=== PATIENT | male | born 1960 | race Two or more races ===

== ENCOUNTER 2017-09-09 12:07 | Outpatient (CLI) | payer OTHER ==
[~2017-09-09 12:07] MED LIST: ALLOPURINOL300 MG; OXYC1TAB9 PO
== END 2017-09-09 14:28 | disposition home or self-care (01) ==
LOC: RAD 12:07
DX: R07.89 Other chest pain (principal); J90 Pleural effusion, not elsewhere classified; J18.0 Bronchopneumonia, unspecified organism; R07.1 Chest pain on breathing

== ENCOUNTER 2017-09-13 10:40 | Outpatient (CLI) | payer OTHER ==
[2017-09-13] MEDS ORDERED: FENTANYL1 EAC5 TOP (18:55)
== END 2017-09-13 10:47 | disposition home or self-care (01) ==
LOC: RAD 10:40
DX: J91.0 Malignant pleural effusion (principal)

== ENCOUNTER 2017-09-13 13:48 | Inpatient (IN) | payer OTHER ==
[~2017-09-13] VITALS: Ht 162.6 cm; Wt 77.1 kg
[2017-09-13] MEDS ORDERED: FENTANYL1 EAC5 TOP (18:55)
== END 2017-09-18 14:16 | disposition home or self-care (01) | DRG 193 ==
LOC: SEC-K 13:48 → SURH 09-15 20:27
PROC: 4A033R1 Measurement of Arterial Saturation, Peripheral, Percutaneous Approach (ICD-10-PCS; principal; 2017-09-13)
PROC: 3E0F7GC Introduction of Other Therapeutic Substance into Respiratory Tract, Via Natural or Artificial Opening (ICD-10-PCS; 2017-09-13)
PROC: 8E0ZXY6 Isolation (ICD-10-PCS; 2017-09-13)
PROC: BW24Y0Z Computerized Tomography (CT Scan) of Chest and Abdomen using Other Contrast, Unenhanced and Enhanced (ICD-10-PCS; 2017-09-13)
DX: J09.X1 Influenza due to identified novel influenza A virus with pneumonia (principal); D61.1 Drug-induced aplastic anemia; J90 Pleural effusion, not elsewhere classified; C17.1 Malignant neoplasm of jejunum; C78.7 Secondary malignant neoplasm of liver and intrahepatic bile duct; C77.2 Secondary and unspecified malignant neoplasm of intra-abdominal lymph nodes; C78.89 Secondary malignant neoplasm of other digestive organs; J18.8 Other pneumonia, unspecified organism; R09.02 Hypoxemia; I10 Essential (primary) hypertension; G89.3 Neoplasm related pain (acute) (chronic); D63.8 Anemia in other chronic diseases classified elsewhere; T45.1X5A Adverse effect of antineoplastic and immunosuppressive drugs, initial encounter

== ENCOUNTER 2017-09-26 08:47 | Outpatient (CLI) | payer OTHER ==
[~2017-09-26 08:47] MED LIST changes: +FENTANYL1 EAC5 TOP
== END 2017-09-26 13:42 | disposition home or self-care (01) ==
LOC: RAD 08:47
DX: R13.11 Dysphagia, oral phase (principal); K21.9 Gastro-esophageal reflux disease without esophagitis

== ENCOUNTER 2017-10-07 11:40 | Inpatient (IN) | payer OTHER ==
[~2017-10-07] VITALS: Ht 162.6 cm; Wt 72.6 kg
[2017-11-01] MEDS ORDERED: GABAPENTIN100 MG PO (09:15)
== END 2017-11-15 13:59 | disposition home or self-care (01) | DRG 336 ==
LOC: O/R 11-08 04:58 → SURG 11-08 04:58
PROVIDERS: Specialist
PROC: 0DN80ZZ Release Small Intestine, Open Approach (ICD-10-PCS; 2017-11-08)
PROC: 07TP0ZZ Resection of Spleen, Open Approach (ICD-10-PCS; principal; 2017-11-08 07:00)
DX: C7A.011 Malignant carcinoid tumor of the jejunum (principal); C7B.01 Secondary carcinoid tumors of distant lymph nodes; D62 Acute posthemorrhagic anemia; C7B.09 Secondary carcinoid tumors of other sites; C7B.02 Secondary carcinoid tumors of liver; D63.0 Anemia in neoplastic disease; K66.0 Peritoneal adhesions (postprocedural) (postinfection); G89.18 Other acute postprocedural pain; R50.82 Postprocedural fever

== ENCOUNTER 2017-10-13 09:24 | Outpatient (CLI) | payer OTHER | END 2017-10-13 16:51 | disposition home or self-care (01) | LOC: RAD 09:24 | DX: J11.1 Influenza due to unidentified influenza virus with other respiratory manifestations (principal); J91.8 Pleural effusion in other conditions classified elsewhere ==

== ENCOUNTER 2017-12-22 10:48 | Inpatient (IN) | payer OTHER ==
[~2017-12-22] VITALS: Ht 162.6 cm; Wt 70.8 kg
[~2017-12-22 10:48] MED LIST changes: +GABAPENTIN100 MG PO
[2017-12-29] MEDS ORDERED: HYOSCYAMINE0.125 M1 SL (09:20)
[2017-12-29] MEDS ORDERED: PERCOCET 5-3251 EACH PO (09:20)
[2017-12-29] MEDS ORDERED: GABAPENTIN600 MG PO (09:20)
== END 2017-12-29 11:53 | disposition home or self-care (01) | DRG 643 ==
LOC: MEDJ 10:48
PROC: BW40ZZZ Ultrasonography of Abdomen (ICD-10-PCS; principal; 2017-12-23)
PROC: 4A033R1 Measurement of Arterial Saturation, Peripheral, Percutaneous Approach (ICD-10-PCS; 2017-12-26)
PROC: B246ZZZ Ultrasonography of Right and Left Heart (ICD-10-PCS; 2017-12-27)
PROC: BW24ZZZ Computerized Tomography (CT Scan) of Chest and Abdomen (ICD-10-PCS; 2017-12-28)
DX: E34.0 Carcinoid syndrome (principal); D61.1 Drug-induced aplastic anemia; N17.8 Other acute kidney failure; C17.1 Malignant neoplasm of jejunum; C78.7 Secondary malignant neoplasm of liver and intrahepatic bile duct; C77.2 Secondary and unspecified malignant neoplasm of intra-abdominal lymph nodes; C78.89 Secondary malignant neoplasm of other digestive organs; J98.11 Atelectasis; E86.0 Dehydration; E83.41 Hypermagnesemia; G89.3 Neoplasm related pain (acute) (chronic); N18.3 Chronic kidney disease, stage 3 (moderate); D50.8 Other iron deficiency anemias; D63.8 Anemia in other chronic diseases classified elsewhere; H81.13 Benign paroxysmal vertigo, bilateral; Z90.81 Acquired absence of spleen

== ENCOUNTER 2018-02-28 09:51 | Outpatient (CLI) | payer OTHER ==
[~2018-02-28 09:51] MED LIST changes: +GABAPENTIN600 MG PO; +HYOSCYAMINE0.125 M1 SL; +PERCOCET 5-3251 EACH PO
== END 2018-02-28 09:55 | disposition home or self-care (01) ==
LOC: SONOGRAMA 09:51
DX: M10.30 Gout due to renal impairment, unspecified site (principal); E79.0 Hyperuricemia without signs of inflammatory arthritis and tophaceous disease; N18.3 Chronic kidney disease, stage 3 (moderate)

== ENCOUNTER 2018-07-13 12:49 | Outpatient (CLI) | payer OTHER | END 2018-07-13 13:11 | disposition home or self-care (01) | LOC: RAD 12:49 | DX: J30.1 Allergic rhinitis due to pollen (principal); J91.8 Pleural effusion in other conditions classified elsewhere; R05 Cough ==

== ENCOUNTER 2018-08-26 10:09 | Emergency (ER) | payer OTHER ==
[~2018-08-26] VITALS: Ht 162.6 cm; Wt 81.6 kg
[2018-08-26] MEDS ORDERED: NEURONTIN300 MG (10:28)
== END 2018-08-26 17:13 | disposition home or self-care (01) ==
LOC: ER 10:09
DX: E34.0 Carcinoid syndrome (principal); C78.7 Secondary malignant neoplasm of liver and intrahepatic bile duct; C77.2 Secondary and unspecified malignant neoplasm of intra-abdominal lymph nodes; C78.89 Secondary malignant neoplasm of other digestive organs; C17.1 Malignant neoplasm of jejunum; R10.12 Left upper quadrant pain; Z90.81 Acquired absence of spleen

== ENCOUNTER 2019-04-06 12:18 | Inpatient (IN) | payer OTHER ==
[~2019-04-06] VITALS: Ht 162.6 cm; Wt 81.6 kg
[~2019-04-06 12:18] MED LIST changes: +NEURONTIN300 MG
[2019-04-09] MEDS ORDERED: VENLAFAXINE HCL25 MG PO ×2 (08:48→14:14)
[2019-04-09] MEDS ORDERED: CETIRIZINE1 MG/1 ML PO (14:12)
[2019-04-09] MEDS ORDERED: NEURONTIN600 MG PO (14:13)
[2019-04-09] MEDS ORDERED: CLONAZEPAM0.5 MG PO (14:13)
[2019-04-09] MEDS ORDERED: FAMOTIDINE20 MG PO (14:14)
[2019-04-09] MEDS ORDERED: SENOKOT-S TABL1 EACH PO (14:15)
[2019-04-09] MEDS ORDERED: LIDODERM1 EACH TOP (14:15)
== END 2019-04-09 14:52 | disposition home or self-care (01) | DRG 392 ==
LOC: MEDJ 12:18
PROVIDERS: ADMIT Internal Medicine Hematology & Oncology
PROC: BR29ZZZ Computerized Tomography (CT Scan) of Lumbar Spine (ICD-10-PCS; principal; 2019-04-07)
DX: K29.00 Acute gastritis without bleeding (principal); C18.5 Malignant neoplasm of splenic flexure; C78.7 Secondary malignant neoplasm of liver and intrahepatic bile duct; E86.0 Dehydration; E87.8 Other disorders of electrolyte and fluid balance, not elsewhere classified; I12.9 Hypertensive chronic kidney disease with stage 1 through stage 4 chronic kidney disease, or unspecified chronic kidney disease; N18.3 Chronic kidney disease, stage 3 (moderate); K86.81 Exocrine pancreatic insufficiency; F32.9 Major depressive disorder, single episode, unspecified; Z85.030 Personal history of malignant carcinoid tumor of large intestine; Z08 Encounter for follow-up examination after completed treatment for malignant neoplasm

== ENCOUNTER 2019-09-25 11:00 | Outpatient (CLI) | payer OTHER ==
[~2019-09-25 11:00] MED LIST changes: +CETIRIZINE1 MG/1 ML PO; +CLONAZEPAM0.5 MG PO; +FAMOTIDINE20 MG PO; +LIDODERM1 EACH TOP; +NEURONTIN600 MG PO; +SENOKOT-S TABL1 EACH PO; +VENLAFAXINE HCL25 MG PO
== END 2019-09-25 11:04 | disposition home or self-care (01) ==
LOC: RAD 11:00
DX: M51.15 Intervertebral disc disorders with radiculopathy, thoracolumbar region (principal); M54.5 Low back pain

== ENCOUNTER 2019-12-24 12:42 | Outpatient (CLI) | payer OTHER | END 2019-12-24 15:00 | disposition home or self-care (01) | LOC: LAB 12:42 → TOM 12-26 09:15 | DX: I10 Essential (primary) hypertension (principal) ==

== ENCOUNTER 2020-01-01 09:48 | Outpatient (CLI) | payer OTHER | END 2020-01-01 09:52 | disposition home or self-care (01) | LOC: LAB 09:48 | DX: N20.0 Calculus of kidney (principal) ==

== ENCOUNTER → 2020-01-01 | Outpatient (CLI) | payer OTHER | END | disposition home or self-care (01) | LOC: TOM 11:22 | PROVIDERS: ATTEND Internal Medicine Hematology & Oncology | DX: C7A.019 Malignant carcinoid tumor of the small intestine, unspecified portion (principal); C78.7 Secondary malignant neoplasm of liver and intrahepatic bile duct ==

== ENCOUNTER 2020-11-27 23:23 | Emergency (ER) | payer OTHER ==
[~2020-11-27] VITALS: Ht 162.6 cm; Wt 77.1 kg
[2020-11-27] MEDS ORDERED: TRAMADOL HCL E300 M1 (23:42)
[2020-11-28] MEDS ORDERED: KETO10TA2 PO (05:04)
== END 2020-11-28 05:31 | disposition home or self-care (01) ==
LOC: ER 23:23
DX: R10.32 Left lower quadrant pain (principal); C78.7 Secondary malignant neoplasm of liver and intrahepatic bile duct

== ENCOUNTER 2020-12-01 12:11 | Inpatient (IN) | payer OTHER ==
[~2020-12-01] VITALS: Ht 162.6 cm; Wt 72.6 kg
[~2020-12-01 12:11] MED LIST changes: +KETO10TA2 PO; +TRAMADOL HCL E300 M1
[2020-12-02] MEDS ORDERED: SANDOSTATIN LAR30 MG (07:57)
[2020-12-02] MEDS ORDERED: OCTREOTIDE100 MCG/3 (07:57)
[2020-12-02] MEDS ORDERED: VOTRIENT200 MG (07:57)
[2020-12-02] MEDS ORDERED: TRAM1TAB98 (07:58)
[2020-12-05] MEDS ORDERED: MESTINON60 M1 PO (17:40)
[2020-12-05] MEDS ORDERED: GABAPENTIN100 MG PO (17:42)
[2020-12-05] MEDS ORDERED: TRAM1TAB98 PO (17:45)
[2020-12-05] MEDS ORDERED: HYDROCODONE-CH115 ML PO (17:46)
[2020-12-05] MEDS ORDERED: LIDODERM1 EACH TOP (17:47)
== END 2020-12-05 18:10 | disposition home or self-care (01) | DRG 644 ==
LOC: SEC-K 12:11 → MEDI 18:01 → SEC-K 18:09 → MEDI 18:10
PROVIDERS: ADMIT Internal Medicine Hematology & Oncology; ATTEND Internal Medicine Hematology & Oncology
PROC: B030ZZZ Magnetic Resonance Imaging (MRI) of Brain (ICD-10-PCS; principal; 2020-12-01)
PROC: B24BZZZ Ultrasonography of Heart with Aorta (ICD-10-PCS; 2020-12-01)
DX: E34.0 Carcinoid syndrome (principal); C7A.011 Malignant carcinoid tumor of the jejunum; C78.7 Secondary malignant neoplasm of liver and intrahepatic bile duct; G70.00 Myasthenia gravis without (acute) exacerbation; Z20.822 Contact with and (suspected) exposure to COVID-19; I12.9 Hypertensive chronic kidney disease with stage 1 through stage 4 chronic kidney disease, or unspecified chronic kidney disease; N18.32 Chronic kidney disease, stage 3b; E86.0 Dehydration; H02.422 Myogenic ptosis of left eyelid
CPT/HCPCS: 240; 70553

== ENCOUNTER 2020-12-15 13:32 | Outpatient (CLI) | payer OTHER ==
[~2020-12-15 13:32] MED LIST changes: +HYDROCODONE-CH115 ML PO; +MESTINON60 M1 PO; +OCTREOTIDE100 MCG/3; +SANDOSTATIN LAR30 MG; +TRAM1TAB98; +TRAM1TAB98 PO; +VOTRIENT200 MG
== END 2020-12-15 13:40 | disposition home or self-care (01) ==
LOC: RAD 13:32
PROVIDERS: ATTEND Internal Medicine Hematology & Oncology
DX: S92.002A Unspecified fracture of left calcaneus, initial encounter for closed fracture (principal)

== ENCOUNTER 2020-12-23 17:26 | Inpatient (IN) | payer OTHER ==
[~2020-12-23] VITALS: Ht 162.6 cm; Wt 72.6 kg
[2020-12-23] MEDS ORDERED: ECOTRIN81 MG PO (17:45)
[2020-12-23] MEDS ORDERED: METOPROLOL SUCC25 MG PO (17:45)
[2020-12-23] MEDS ORDERED: ALLOPURINOL100 MG PO (17:45)
[2020-12-25] MEDS ORDERED: PREDNISONE20 M1 (09:52)
[2020-12-25] MEDS ORDERED: OCTREOTIDE100 MCG/3 (09:53)
[2020-12-25] MEDS ORDERED: VOTRIENT200 MG (09:53)
[2020-12-25] MEDS ORDERED: SANDOSTATIN LAR30 MG (09:53)
[2020-12-25] MEDS ORDERED: LIDOCAINE1 EACH (09:53)
[2020-12-25] MEDS ORDERED: TRAM1TAB98 (09:53)
[2020-12-25] MEDS ORDERED: HYDROCODONE-CH115 ML (09:53)
[2020-12-25] MEDS ORDERED: TRAMADOL HCL50 MG (09:54)
== END 2020-12-25 14:41 | disposition designated cancer center or children's hospital (05) | DRG 303 ==
LOC: ER 17:26 → ICU-2 20:51
PROVIDERS: ADMIT Internal Medicine; ATTEND Internal Medicine
DX: I25.110 Atherosclerotic heart disease of native coronary artery with unstable angina pectoris (principal); G70.00 Myasthenia gravis without (acute) exacerbation; Z20.822 Contact with and (suspected) exposure to COVID-19; N18.31 Chronic kidney disease, stage 3a

== ENCOUNTER 2021-03-04 14:08 | Inpatient (IN) | payer OTHER ==
[~2021-03-04] VITALS: Ht 162.6 cm; Wt 69.4 kg
[~2021-03-04 14:08] MED LIST changes: +ALLOPURINOL100 MG PO; +ECOTRIN81 MG PO; +HYDROCODONE-CH115 ML; +LIDOCAINE1 EACH; +METOPROLOL SUCC25 MG PO; +PREDNISONE20 M1; +TRAMADOL HCL50 MG
[2021-03-05] MEDS ORDERED: ATORVASTATIN CA40 MG (08:41)
[2021-03-05] MEDS ORDERED: PANTOPRAZOLE SO20 MG (08:41)
[2021-03-05] MEDS ORDERED: TAMSULOSIN HCL0.4 MG (08:41)
[2021-03-16] MEDS ORDERED: TAMS0.4C PO (17:33)
[2021-03-16] MEDS ORDERED: MESTINON60 M1 PO (17:33)
[2021-03-16] MEDS ORDERED: LIPITOR40 MG PO (17:34)
[2021-03-16] MEDS ORDERED: CHOLESTYRAMINE P4 GM PO (17:34)
[2021-03-16] MEDS ORDERED: GABAPENTIN100 MG PO (17:36)
[2021-03-16] MEDS ORDERED: ST. JOSEPH ASPI81 M2 PO (17:36)
[2021-03-16] MEDS ORDERED: METOPROLOL SUCC25 MG PO (17:36)
[2021-03-16] MEDS ORDERED: INTESTINEX680 M1 PO (17:37)
[2021-03-16] MEDS ORDERED: PROTONIX40 MG PO (17:37)
[2021-03-16] MEDS ORDERED: PRE PROTEIN1 EACH PO (17:37)
[2021-03-16] MEDS ORDERED: Ferro-Plex CAPLET PO (17:38)
[2021-03-16] MEDS ORDERED: ZYLOPRIM100 M1 PO (17:38)
== END 2021-03-16 18:25 | disposition home or self-care (01) | DRG 872 ==
LOC: MEDJ 14:08
PROVIDERS: ADMIT Internal Medicine Hematology & Oncology; ATTEND Internal Medicine Hematology & Oncology
PROC: 8E0ZXY6 Isolation (ICD-10-PCS; principal; 2021-03-04)
PROC: 3E0F7GC Introduction of Other Therapeutic Substance into Respiratory Tract, Via Natural or Artificial Opening (ICD-10-PCS; 2021-03-11)
PROC: 3E0F7SF Introduction of Other Gas into Respiratory Tract, Via Natural or Artificial Opening (ICD-10-PCS; 2021-03-11)
DX: A41.9 Sepsis, unspecified organism (principal); C7B.02 Secondary carcinoid tumors of liver; C7B.09 Secondary carcinoid tumors of other sites; E27.3 Drug-induced adrenocortical insufficiency; C7A.019 Malignant carcinoid tumor of the small intestine, unspecified portion; C7B.01 Secondary carcinoid tumors of distant lymph nodes; N18.31 Chronic kidney disease, stage 3a; D50.8 Other iron deficiency anemias; I25.10 Atherosclerotic heart disease of native coronary artery without angina pectoris; G70.00 Myasthenia gravis without (acute) exacerbation; Z20.822 Contact with and (suspected) exposure to COVID-19; Z79.52 Long term (current) use of systemic steroids; R09.02 Hypoxemia; T38.0X5A Adverse effect of glucocorticoids and synthetic analogues, initial encounter; E86.0 Dehydration; A08.8 Other specified intestinal infections; G44.209 Tension-type headache, unspecified, not intractable
CPT/HCPCS: 240; 70552

== ENCOUNTER → 2021-04-16 13:52 | Outpatient (CLI) | payer OTHER ==
[~2021-04-16 13:52] MED LIST changes: +ATORVASTATIN CA40 MG; +ATORVASTATIN CA40 MG PO; +CHOLESTYRAMINE P4 GM PO; +CYMBALTA30 MG PO; +Ferro-Plex CAPLET PO; +INTESTINEX680 M1 PO; +LIDOCAINE1 EACH TOP; +LIPITOR40 MG PO; +MESTINON60 M1; +ONDANSETRON4 MG/2 M1 IV; +ORAPRED ODT10 MG; +PANTOPRAZOLE SO20 MG; +PRE PROTEIN1 EACH PO; +PREDNISONE20 MG PO; +PROTONIX40 MG PO; +ST. JOSEPH ASPI81 M2 PO; +TAMS0.4C PO; +TAMSULOSIN HCL0.4 MG; +ZYLOPRIM100 M1 PO
== END | disposition home or self-care (01) ==
LOC: RAD 13:52
PROVIDERS: ATTEND Internal Medicine Hematology & Oncology
DX: M54.15 Radiculopathy, thoracolumbar region (principal); G89.3 Neoplasm related pain (acute) (chronic); C78.00 Secondary malignant neoplasm of unspecified lung

== ENCOUNTER 2021-04-20 12:24 | Inpatient (IN) | payer OTHER ==
[~2021-04-20] VITALS: Ht 261.6 cm; Wt 68.0 kg
[~2021-04-20 12:24] MED LIST changes: -ATORVASTATIN CA40 MG PO; -CYMBALTA30 MG PO; -LIDOCAINE1 EACH TOP; -MESTINON60 M1; -ONDANSETRON4 MG/2 M1 IV; -ORAPRED ODT10 MG; -PREDNISONE20 MG PO
[2021-04-20] MEDS ORDERED: ORAPRED ODT10 MG (13:21)
[2021-04-20] MEDS ORDERED: MESTINON60 M1 (13:22)
--- NOTE | 2021-04-20 13:27 | NUR ---
PTE ALERTA Y ORIENTADO X3. REFIERE DOLOR ABDOMINAL PERSISTENTE EN EL LADO DERECHO Y ESPALDA MEDIA LADO DERECHO DESDE HACE MURPHY MITCHELL. SE MONITOREAN S/V TEMP 100.5
--- NOTE | 2021-04-20 15:03 | NUR ---
PACIENTE EVALUADO POR DR. WHEELER QUIEN ORDENA TRATAMIENTO. SE EDUCA A PTE SOBRE ORDENES MEDICAS Y REFIERE COMPRENDER. SE CANALIZA Y SE COLECTAN MUESTRAS DE LABORATORIO SUSANNA ORDEN MEDICA. PTE REHUSA MEDICAMENTO TORADOL.
[2021-04-24] MEDS ORDERED: MESTINON60 M1 PO (12:38)
[2021-04-24] MEDS ORDERED: ATORVASTATIN CA40 MG PO (12:39)
[2021-04-24] MEDS ORDERED: ECOTRIN81 MG PO (12:39)
[2021-04-24] MEDS ORDERED: METOPROLOL SUCC25 MG PO (12:39)
[2021-04-24] MEDS ORDERED: CYMBALTA30 MG PO (12:40)
[2021-04-24] MEDS ORDERED: GABAPENTIN100 MG PO (12:40)
[2021-04-24] MEDS ORDERED: FAMOTIDINE20 MG PO (12:41)
[2021-04-24] MEDS ORDERED: INTESTINEX680 M1 PO (12:41)
[2021-04-24] MEDS ORDERED: ONDANSETRON4 MG/2 M1 IV (12:41)
[2021-04-24] MEDS ORDERED: PREDNISONE20 MG PO (12:42)
[2021-04-24] MEDS ORDERED: Ferro-Plex CAPLET PO (12:43)
[2021-04-24] MEDS ORDERED: LIDOCAINE1 EACH TOP (12:43)
[2021-04-24] MEDS ORDERED: ZYLOPRIM100 M1 PO (12:43)
== END 2021-04-24 13:27 | disposition home or self-care (01) | DRG 948 ==
LOC: ER 12:24 → SURH 18:28
PROVIDERS: ADMIT Internal Medicine Hematology & Oncology; ATTEND Internal Medicine Hematology & Oncology
DX: G89.3 Neoplasm related pain (acute) (chronic) (principal); C78.6 Secondary malignant neoplasm of retroperitoneum and peritoneum; C78.7 Secondary malignant neoplasm of liver and intrahepatic bile duct; C78.02 Secondary malignant neoplasm of left lung; C78.01 Secondary malignant neoplasm of right lung; C17.9 Malignant neoplasm of small intestine, unspecified; E86.0 Dehydration; I13.10 Hypertensive heart and chronic kidney disease without heart failure, with stage 1 through stage 4 chronic kidney disease, or unspecified chronic kidney disease; N18.31 Chronic kidney disease, stage 3a; D50.9 Iron deficiency anemia, unspecified; Z20.822 Contact with and (suspected) exposure to COVID-19; G70.00 Myasthenia gravis without (acute) exacerbation

== ENCOUNTER 2021-05-25 08:52 | Outpatient (CLI) | payer OTHER ==
[~2021-05-25 08:52] MED LIST changes: +ATORVASTATIN CA40 MG PO; +CYMBALTA30 MG PO; +LIDOCAINE1 EACH TOP; +MESTINON60 M1; +ONDANSETRON4 MG/2 M1 IV; +ORAPRED ODT10 MG; +PREDNISONE20 MG PO
== END 2021-05-25 09:01 | disposition home or self-care (01) ==
LOC: MRI 08:52
PROVIDERS: ATTEND Internal Medicine Hematology & Oncology
DX: K76.0 Fatty (change of) liver, not elsewhere classified (principal); K83.1 Obstruction of bile duct; C78.7 Secondary malignant neoplasm of liver and intrahepatic bile duct
CPT/HCPCS: 74181

== ENCOUNTER 2021-05-27 12:53 | Inpatient (IN) | payer OTHER ==
[~2021-05-27] VITALS: Ht 162.6 cm; Wt 72.6 kg
[2021-06-04] MEDS ORDERED: TAMS0.4C PO (17:53)
[2021-06-04] MEDS ORDERED: MESTINON60 M1 PO ×2 (17:53)
[2021-06-04] MEDS ORDERED: GABAPENTIN100 MG PO (17:54)
== END 2021-06-04 20:31 | disposition home or self-care (01) | DRG 445 ==
LOC: MEDJ 12:53 → SEC-K 12:53 → MEDJ 15:43
PROVIDERS: ADMIT Internal Medicine Hematology & Oncology; ATTEND Internal Medicine Hematology & Oncology
PROC: 02HV33Z Insertion of Infusion Device into Superior Vena Cava, Percutaneous Approach (ICD-10-PCS; 2021-05-28)
PROC: BF37ZZZ Magnetic Resonance Imaging (MRI) of Pancreas (ICD-10-PCS; principal; 2021-05-31)
DX: K83.1 Obstruction of bile duct (principal); C78.7 Secondary malignant neoplasm of liver and intrahepatic bile duct; C78.00 Secondary malignant neoplasm of unspecified lung; C7A.011 Malignant carcinoid tumor of the jejunum; I12.9 Hypertensive chronic kidney disease with stage 1 through stage 4 chronic kidney disease, or unspecified chronic kidney disease; N18.31 Chronic kidney disease, stage 3a; G70.00 Myasthenia gravis without (acute) exacerbation; E09.9 Drug or chemical induced diabetes mellitus without complications; Z79.4 Long term (current) use of insulin; Z20.822 Contact with and (suspected) exposure to COVID-19

== ENCOUNTER 2021-06-14 23:48 | Inpatient (IN) | payer OTHER ==
[~2021-06-14] VITALS: Ht 162.6 cm; Wt 68.0 kg
[2021-06-15] MEDS ORDERED: MORPHINE SULFAT15 MG (00:07)
== END 2021-06-23 14:49 | disposition home or self-care (01) | DRG 445 ==
LOC: ER 23:48 → SURH 06-15 09:22
PROVIDERS: Radiology Vascular & Interventional Radiology; ADMIT Internal Medicine Hematology & Oncology; ATTEND Internal Medicine Hematology & Oncology
PROC: 02HV33Z Insertion of Infusion Device into Superior Vena Cava, Percutaneous Approach (ICD-10-PCS; 2021-06-15)
PROC: BF10YZZ Fluoroscopy of Bile Ducts using Other Contrast (ICD-10-PCS; 2021-06-19)
PROC: 0F9930Z Drainage of Common Bile Duct with Drainage Device, Percutaneous Approach (ICD-10-PCS; principal; 2021-06-19 18:00)
DX: K83.1 Obstruction of bile duct (principal); C7B.02 Secondary carcinoid tumors of liver; E86.0 Dehydration; I12.9 Hypertensive chronic kidney disease with stage 1 through stage 4 chronic kidney disease, or unspecified chronic kidney disease; N18.31 Chronic kidney disease, stage 3a; D50.8 Other iron deficiency anemias; D63.8 Anemia in other chronic diseases classified elsewhere; Z20.822 Contact with and (suspected) exposure to COVID-19

== ENCOUNTER 2021-07-20 09:45 | Outpatient (CLI) | payer OTHER ==
[~2021-07-20 09:45] MED LIST changes: +MORPHINE SULFAT15 MG
== END 2021-07-20 09:49 | disposition home or self-care (01) ==
LOC: SONOGRAMA 09:45
PROVIDERS: ATTEND Internal Medicine Hematology & Oncology
DX: K76.89 Other specified diseases of liver (principal); R10.11 Right upper quadrant pain; K80.80 Other cholelithiasis without obstruction

== ENCOUNTER 2021-07-20 11:50 | Emergency (ER) | payer OTHER ==
[~2021-07-20] VITALS: Ht 162.6 cm; Wt 63.5 kg
== END 2021-07-20 22:27 | disposition home or self-care (01) ==
LOC: ER 11:50
DX: U07.1 COVID-19 (principal); K83.1 Obstruction of bile duct; C78.7 Secondary malignant neoplasm of liver and intrahepatic bile duct; C78.00 Secondary malignant neoplasm of unspecified lung; R11.2 Nausea with vomiting, unspecified; R53.81 Other malaise; Z95.828 Presence of other vascular implants and grafts

== ENCOUNTER 2021-08-15 12:46 | Inpatient (IN) | payer OTHER ==
[~2021-08-15] VITALS: Ht 162.6 cm; Wt 63.5 kg
--- NOTE | 2021-08-15 12:59 | NUR ---
SE RECIBE PACIENTE ALERTA, ORIENTADO X 3 ESFERAS EN SILLA DE MIRI, ACOMPANADO DE ESPOSA REFIERE TENER DOLOR ABDOMINAL DESDE ESTA MANANA . PTE HX CANCER METASTIZADA Y TIENE DRENAGE BILIAR EN LADO DERECHO DEL ABDOMEN. SE ESTIMAN S/V SE UBICA EN AREA DE OBSERVACION.
--- NOTE | 2021-08-15 13:53 | NUR ---
SE ORIENTA A PACIENTE SOBRE TRATAMIENTO ORDENADO POR DR. RODRIGUEZ, EL MISMO VERBALIZA ENTENDER. ERVIN VILLALTA COLECTA MUESTRAS DE LABORATORIOS, ADMINISTRA MEDICAMENTOS Y COLOCA VENOPUNCION PATENTE, NICOLA DE ERITEMA Y EDEMA, CONECTA TERAPIA DE IVF'S. PENDIENTE RESULTADOS DE LABORATORIOS.
[2021-08-24] MEDS ORDERED: CETIRIZINE HCL10 MG (16:32)
[2021-08-24] MEDS ORDERED: SOMATULINE (16:32)
[2021-08-24] MEDS ORDERED: ALLOPURINOL100 MG (16:33)
[2021-08-24] MEDS ORDERED: GABAPENTIN100 M2 (16:33)
[2021-08-24] MEDS ORDERED: FLONASE16 GM (16:33)
[2021-08-24] MEDS ORDERED: ATORVASTATIN CA40 MG (16:33)
[2021-08-24] MEDS ORDERED: DULOXETINE HCL30 MG (16:33)
[2021-08-24] MEDS ORDERED: MONTELUKAST SOD10 MG (16:34)
[2021-08-24] MEDS ORDERED: TIMOLOL MALEATE5 M4 (16:34)
[2021-08-24] MEDS ORDERED: LIDOCAINE1 EACH (16:34)
[2021-08-24] MEDS ORDERED: TAMSULOSIN HCL0.4 MG (16:35)
[2021-08-26] MEDS ORDERED: MESTINON60 M1 PO (12:54)
[2021-08-26] MEDS ORDERED: NEURONTIN PO (12:55)
[2021-08-26] MEDS ORDERED: MORPHINE SULFAT15 MG PO (12:56)
[2021-08-26] MEDS ORDERED: FAMOTIDINE20 MG PO (12:57)
[2021-08-26] MEDS ORDERED: SENOKOT-S TABL1 EACH PO (12:58)
[2021-08-26] MEDS ORDERED: PREDNISONE20 MG PO (12:58)
== END 2021-08-26 13:22 | disposition home or self-care (01) | DRG 438 ==
LOC: ER 12:46 → MEDI 17:42
PROVIDERS: Radiology Vascular & Interventional Radiology; ADMIT Internal Medicine Hematology & Oncology; ATTEND Internal Medicine Hematology & Oncology
PROC: BW21ZZZ Computerized Tomography (CT Scan) of Abdomen and Pelvis (ICD-10-PCS; 2021-08-15)
PROC: 0F9930Z Drainage of Common Bile Duct with Drainage Device, Percutaneous Approach (ICD-10-PCS; principal; 2021-08-17 16:00)
DX: K85.90 Acute pancreatitis without necrosis or infection, unspecified (principal); K83.1 Obstruction of bile duct; A40.1 Sepsis due to streptococcus, group B; C17.9 Malignant neoplasm of small intestine, unspecified; C78.7 Secondary malignant neoplasm of liver and intrahepatic bile duct; E27.49 Other adrenocortical insufficiency; N17.9 Acute kidney failure, unspecified; E34.0 Carcinoid syndrome; D63.0 Anemia in neoplastic disease; D50.8 Other iron deficiency anemias; I13.10 Hypertensive heart and chronic kidney disease without heart failure, with stage 1 through stage 4 chronic kidney disease, or unspecified chronic kidney disease; N18.30 Chronic kidney disease, stage 3 unspecified; Z86.16 Personal history of COVID-19; E09.9 Drug or chemical induced diabetes mellitus without complications; G70.00 Myasthenia gravis without (acute) exacerbation; E86.0 Dehydration; R09.02 Hypoxemia

== ENCOUNTER 2021-09-05 13:10 | Inpatient (IN) | payer OTHER ==
[~2021-09-05] VITALS: Ht 162.6 cm; Wt 68.0 kg
[~2021-09-05 13:10] MED LIST changes: +ALLOPURINOL100 MG; +CETIRIZINE HCL10 MG; +DULOXETINE HCL30 MG; +FLONASE16 GM; +GABAPENTIN100 M2; +MONTELUKAST SOD10 MG; +MORPHINE SULFAT15 MG PO; +NEURONTIN PO; +SOMATULINE; +TIMOLOL MALEATE5 M4
[2021-09-07] MEDS ORDERED: SPIRONOLACTONE100 MG (08:18)
[2021-09-07] MEDS ORDERED: GABAPENTIN250 MG/5 M ×2 (08:18→08:22)
[2021-09-07] MEDS ORDERED: ABANEU-SL TABL1 EACH (08:19)
[2021-09-07] MEDS ORDERED: MONTELUKAST SOD10 MG (08:20)
[2021-09-07] MEDS ORDERED: FLONASE16 GM (08:21)
== END 2021-09-22 08:25 | disposition expired | DRG 435 ==
LOC: ER 13:10 → MEDI 13:57 → SEC-K 13:57 → MEDI 09-06 00:24 → MEDJ 09-17 07:52
PROVIDERS: ADMIT Internal Medicine Hematology & Oncology; ATTEND Internal Medicine Hematology & Oncology
PROC: 30243K1 Transfusion of Nonautologous Frozen Plasma into Central Vein, Percutaneous Approach (ICD-10-PCS; 2021-09-08)
PROC: 0W9J30Z Drainage of Pelvic Cavity with Drainage Device, Percutaneous Approach (ICD-10-PCS; principal; 2021-09-09)
PROC: 0W993ZZ Drainage of Right Pleural Cavity, Percutaneous Approach (ICD-10-PCS; 2021-09-09)
PROC: 30243L1 Transfusion of Nonautologous Fresh Plasma into Central Vein, Percutaneous Approach (ICD-10-PCS; 2021-09-09)
PROC: 30243R1 Transfusion of Nonautologous Platelets into Central Vein, Percutaneous Approach (ICD-10-PCS; 2021-09-09)
PROC: 4A12X4Z Monitoring of Cardiac Electrical Activity, External Approach (ICD-10-PCS; 2021-09-17)
PROC: 02HV33Z Insertion of Infusion Device into Superior Vena Cava, Percutaneous Approach (ICD-10-PCS; 2021-09-20)
DX: C78.7 Secondary malignant neoplasm of liver and intrahepatic bile duct (principal); A41.89 Other specified sepsis; R65.20 Severe sepsis without septic shock; K83.1 Obstruction of bile duct; K72.00 Acute and subacute hepatic failure without coma; K65.1 Peritoneal abscess; U07.1 COVID-19; J69.0 Pneumonitis due to inhalation of food and vomit; G93.41 Metabolic encephalopathy; C78.6 Secondary malignant neoplasm of retroperitoneum and peritoneum; T85.638A Leakage of other specified internal prosthetic devices, implants and grafts, initial encounter; N17.8 Other acute kidney failure; J90 Pleural effusion, not elsewhere classified; C78.00 Secondary malignant neoplasm of unspecified lung; C17.1 Malignant neoplasm of jejunum; G70.00 Myasthenia gravis without (acute) exacerbation; R09.02 Hypoxemia; I12.9 Hypertensive chronic kidney disease with stage 1 through stage 4 chronic kidney disease, or unspecified chronic kidney disease; E11.22 Type 2 diabetes mellitus with diabetic chronic kidney disease; N18.30 Chronic kidney disease, stage 3 unspecified; D63.0 Anemia in neoplastic disease; G89.3 Neoplasm related pain (acute) (chronic); Z66 Do not resuscitate; F43.21 Adjustment disorder with depressed mood